=== PATIENT | female | born 1970 ===

== ENCOUNTER 2016-10-19 16:16 | Observation (INO) | payer MEDICAID, OTHER ==
[2016-10-19] MEDS ORDERED: Gadodiamide 287 MG/ML VIAL (15ML) IV ONE (18:22)
--- NOTE | 2016-10-19 18:29 | C.PDOC ---
History Of Present Illness Pt reports horizontal double vision for the pat two days. Pt is 2wks post had mildly elevated BP durning and headache. Reports post delivery [place] improved just occasional frontal discomfort. Denies any weakness, numbness, fever, chills, vomiting or prior episodes of diplopia Pt is breast feeding with formula supplements. Seem by OB MD today and refereed to the ED after OP bloods and urine. Time Seen by Provider: 10/19/16 16:40 Chief Complaint (Nursing): Eye Problem History Per: Patient, Family History/Exam Limitations: no limitations Onset/Duration Of Symptoms: Days Current Symptoms Are (Timing): Still Present Past Medical History Vital Signs: Last Vital Signs Temp 97.9 F 10/19/16 16:20 Pulse 78 10/19/16 16:20 Resp 18 10/19/16 16:20 BP 151/86 H 10/19/16 16:20 Pulse Ox 99 10/19/16 16:20 - Medical History PMH: Hypothyroidism Surgical History: Appendectomy Family History: States: Unknown Family Hx - Social History Hx Alcohol Use: No Hx Substance Use: No Review Of Systems Except As Marked, All Systems Reviewed And Found Negative. Physical Exam - Physical Exam Appears: Well, Non-toxic, No Acute Distress Skin: Normal Color, Warm, Dry Eye(s): bilateral: Normal Inspection, PERRL, Abnormal Pupil, left: EOMI (Slight dysconjugate lateral gaze) Neck: Normal Chest: Symmetrical Cardiovascular: Rhythm Regular, No Murmur Respiratory: Normal Breath Sounds Pulses: Left Carotid: Normal, Right Carotid: Normal Neurological/Psych: Oriented x3, Normal Speech, Normal Cognition, Normal Cranial Nerves (? 3rd nerve palsy), No Cerebellar Signs, Normal Motor, Normal Sensation Gait: Steady ED Course And Treatment O2 Sat by Pulse Oximetry: 99 Medical Decision Making Medical Decision Making: Pt had unremarkable bloods as an OP and no protein in the urine BP is borderline high Does not appear to be pre-eclampsia, more likely, MS or cranial nerve problem Plan MRI to r/o MS [place] or other lesion Plan discussed with pt and dr Flaherty Disposition Counseled Patient/Family Regarding: Diagnosis, Need For Followup - Disposition Disposition: HOME/ ROUTINE Disposition Time: 18:56 Condition: FAIR - Clinical Impression Clinical Impression: Diplopia Physician Patient Turnover Patient Signed Over To: Dagoberto Seymour Handoff Comments: Pending results of MRI, and discussion with dr Flaherty ([phone])
[2016-10-19] MEDS ORDERED: cefTRIAXone 2 GM in Sodium Chloride 0.9% 100 ML IVPB STA (19:41)
[2016-10-19 21:13] VITALS: RESP 20
[2016-10-19] MEDS ORDERED: cefTRIAXone IV 1 gm in Dextros 100 ML IVPB ONE (21:27)
[2016-10-19 21:31] LABS: FLUID TYPE SPINAL FLUID
--- NOTE | 2016-10-19 22:37 | CP.PCM.CON ---
History of Present Illness - History of Present Illness History of Present Illness: this is a 46 year old healthy female with no PMH and recent C- section with epidural block 14 days ago. She had neck pain and head ache for one week is not completely gone, but since tuesday evening she has had double vision when looking forward only, not when looking to the sides. Movement of the eyes to the sides shows complete movement of the eye ball to the right on both eyes, when looking to the left there is complete movement of the eye ball to the left with the right eye and almost complete, but not quite with the left eye. 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 no fever, wbc count wnl. LP was done with patient lying on the side with very low OP (3) and very slow output of CSF fluid, fluid was send to the lab. I highly doubt there is infections meningitis. Possibly there is oculomotor nerve palsy, some of it's fiber innervate muscles that enable pupillary constriction and accomodation. This normally occurs 4-14 days after LP with leak of CSF fluid (syndrome of intracranial hypotension) and recovers in weeks to months, possibly blood patch can be done to stop leak if still occurring. Please consult neurology. No need for critical care admission. Past Patient History - Past Social History Smoking Status: Never Smoked - ENDOCRINE/METABOLIC Hx Hypothyroidism: Yes - PSYCHIATRIC Hx Substance Use: No - SURGICAL HISTORY Hx Appendectomy: Yes Meds Allergies/Adverse Reactions: Allergies Allergy/AdvReac Type Severity Reaction Status Date / Time No Known Allergies Allergy Verified 10/19/16 16:22 Results - Vital Signs Recent Vital Signs: Last Vital Signs Temp 97.8 F 10/19/16 19:10 Pulse 72 10/19/16 21:38 Resp 20 10/19/16 21:38 BP 122/76 10/19/16 21:38 Pulse Ox 99 10/19/16 21:38 - Labs Labs: Laboratory Results - last 24 hr 10/19/16 10/19/16 21:29 21:29 Fluid Type Spinal fluid CSF Glucose 38 L CSF Total Protein 73.0 H
--- NOTE | 2016-10-20 08:07 | MRI ---
PROCEDURE: MRI BRAIN WITH AND WITHOUT CONTRAST HISTORY: post dobble vision r/o ms COMPARISON: None. TECHNIQUE: Multiplanar, multisequence MR images of the brain were obtained with and without intravenous contrast enhancement. FINDINGS: HEMORRHAGE: None DWI: No evidence of an acute or early subacute infarction. BRAIN PARENCHYMA: No mass,mass effect or edema. No atrophy or chronic microvascular ischemic changes. ENHANCEMENT: No abnormal intracranial enhancement. VENTRICLES: Unremarkable. No hydrocephalus. CRANIUM: Unremarkable. ORBITS: Grossly unremarkable. PARANASAL SINUSES/MASTOIDS: Clear VASCULAR SYSTEM: Skull base flow voids intact. OTHER FINDINGS: There is enlargement of the pituitary gland measuring 8 millimeters in craniocaudad dimension with questionable mass effect upon the cavernous sinuses bilaterally. Recommend correlation with dedicated MRI of the pituitary gland.. IMPRESSION: There is enlargement of the pituitary gland measuring 8 millimeters in craniocaudad dimension with questionable mass effect upon the cavernous sinuses bilaterally. Recommend correlation with dedicated MRI of the pituitary gland.
--- NOTE | 2016-10-20 08:24 | CP.PCM.HP ---
Present on Admission - Present on Admission Any Indicators Present on Admission: No Past Patient History - Past Medical History & Family History Past Medical History?: Yes - Past Social History Smoking Status: Never Smoked - CARDIAC Hx Cardiac Disorders: No - PULMONARY Hx Respiratory Disorders: No - NEUROLOGICAL Hx Neurological Disorder: No - HEENT Hx HEENT Problems: No - RENAL Hx Chronic Kidney Disease: No - ENDOCRINE/METABOLIC Hx Endocrine Disorders: Yes Hx Hypothyroidism: Yes - HEMATOLOGICAL/ONCOLOGICAL Hx Blood Disorders: No - INTEGUMENTARY Hx Dermatological Problems: No - MUSCULOSKELETAL/RHEUMATOLOGICAL Hx Falls: No - GASTROINTESTINAL Hx Gastrointestinal Disorders: No - GENITOURINARY/GYNECOLOGICAL Hx Genitourinary Disorders: No - PSYCHIATRIC Hx Substance Use: No - SURGICAL HISTORY Hx Surgeries: Yes Hx Appendectomy: Yes (2009) - ANESTHESIA Hx Anesthesia: Yes Hx Anesthesia Reactions: No Hx Malignant Hyperthermia: No Has any member of the family had a problem w/ anesthesia?: No Meds Allergies/Adverse Reactions: Allergies Allergy/AdvReac Type Severity Reaction Status Date / Time No Known Allergies Allergy Verified 10/19/16 16:22 Results - Vital Signs Recent Vital Signs: Last Vital Signs Temp 97.9 F 10/20/16 00:00 Pulse 78 10/20/16 00:00 Resp 20 10/20/16 00:00 BP 142/89 10/20/16 00:00 Pulse Ox 99 10/20/16 00:00 - Labs Labs: Laboratory Results - last 24 hr 10/19/16 10/19/16 21:29 21:29 Fluid Type Spinal fluid CSF Volume 1 CSF Appearance Clear/colorless CSF WBC 5.0 CSF RBC 171.0 H CSF Total Cell Counted TEST NOT PERFORMED CSF Monos/Macrophages TEST NOT PERFORMED CSF Comment CSF Glucose 38 L CSF Total Protein 73.0 H Assessment & Plan - Assessment and Plan (Free Text) Plan: neuro id ic reocephin iv vanco one dose of steroid pain med oph loreta same
[2016-10-20 08:31] VITALS: O2SAT 96
[2016-10-20] MEDS: Vancomycin 1 gm/NS 200 ml 1 GM/200 ML BAG IVPB SCH ×2 (09:37→22:49)
[2016-10-20] MEDS: Dextrose 5%/0.45% NS 1,000 ML IV SCH ×2 (09:37→19:13)
[2016-10-20] MEDS ORDERED: Enoxaparin 30 mg Syringe SC SCH (10:00)
[2016-10-20] MEDS ORDERED: Pantoprazole 40 mg EC Tab PO SCH (10:00)
--- NOTE | 2016-10-20 10:27 | CP.PCM.PN ---
Subjective - Date & Time of Evaluation Date of Evaluation: 10/20/16 Time of Evaluation: 13:00 - Subjective Subjective: clinically same Objective - Vital Signs/Intake and Output Vital Signs (last 24 hours): Temp Pulse Resp BP Pulse Ox 98.4 F 65 20 125/76 96 10/20/16 08:30 10/20/16 08:30 10/20/16 08:30 10/20/16 08:30 10/20/16 08:30 - Medications Medications: Current Medications Enoxaparin Sodium (Lovenox) 30 mg SC DAILY [facility] Last Admin: 10/20/16 09:36 Dose: 30 mg Ceftriaxone Sodium (Rocephin Iv 1 Gm Duplex) 50 mls @ 100 mls/hr IVPB Q12H [facility] Vancomycin/Sodium Chloride (Vancocin) 1 gm in 200 mls @ 133 mls/hr IVPB Q12H [facility] Stop: 10/25/16 10:01 Last Admin: 10/20/16 09:37 Dose: 133 mls/hr Dextrose/Sodium Chloride (Dextrose 5%/0.45% Ns 1000 Ml) 1,000 mls @ 100 mls/hr IV .Q10H [facility] Last Admin: 10/20/16 09:37 Dose: 100 mls/hr Pantoprazole Sodium (Protonix Ec Tab) 40 mg PO DAILY [facility] Last Admin: 10/20/16 09:37 Dose: 40 mg - Constitutional Appears: Well - Head Exam Head Exam: ATRAUMATIC, NORMAL INSPECTION, NORMOCEPHALIC - Eye Exam Eye Exam: EOMI, Normal appearance, PERRL Pupil Exam: NORMAL ACCOMODATION, PERRL - ENT Exam ENT Exam: Mucous Membranes Moist, Normal Exam - Neck Exam Neck Exam: Full ROM, Normal Inspection. absent: Lymphadenopathy - Respiratory Exam Respiratory Exam: Decreased Breath Sounds - Cardiovascular Exam Cardiovascular Exam: REGULAR RHYTHM, +S1, +S2 - GI/Abdominal Exam GI & Abdominal Exam: Soft, Diminished Bowel Sounds - Rectal Exam Rectal Exam: Deferred
[2016-10-20] MEDS: cefTRIAXone IV 1 gm in Dextros 50 ML IVPB SCH ×2 (12:10→22:11)
[2016-10-20 14:03] LABS: BASO % 0.2 % (0.0-2.0); EOS % 0.1 % (0.0-4.0); HEMATOCRIT 35.5 % (34.0-47.0); LYMPH # 2.5 K/uL (1.0-4.3); LYMPH % 16.9 % (20.0-40.0); MEAN CELL VOLUME 87.5 fL (81.0-99.0); MEAN CORPUSCULAR HGB CONC 34.2 g/dL (33.0-37.0); MEAN PLATELET VOLUME 7.9 fL (7.2-11.7); MONO # 0.6 K/uL (0.0-0.8); MONO % 3.8 % (0.0-10.0); RED CELL DISTRIBUTION WIDTH 12.7 % (11.5-14.5); WHITE BLOOD COUNT 14.9 K/uL (4.8-10.8)
[2016-10-20 14:14] LABS: CHLORIDE 104 mmol/L (98-107)
[2016-10-20 14:15] LABS: POTASSIUM 3.7 mmol/L (3.6-5.2); SODIUM 136 mmol/L (132-148)
[2016-10-20 14:17] LABS: BILIRUBIN,DIRECT 0.3 mg/dL (0.0-0.4); BILIRUBIN,TOTAL 0.5 mg/dL (0.2-1.3); CARBON DIOXIDE 20 mmol/L (22-30); GFR AFRICAN-AMERICAN > 60
[2016-10-20 14:18] LABS: ALB/GLOB RATIO 0.9 (1.0-2.1); ALKALINE PHOSPHATASE 88 U/L (38-126); ALT/SGPT 32 U/L (9-52); AST/SGOT 25 U/L (14-36); BLOOD UREA NITROGEN 9 mg/dL (7-17); CALCIUM 8.6 mg/dl (8.6-10.4); GLUCOSE,RANDOM 95 mg/dL (65-105); TOTAL PROTEIN 7.4 g/dL (6.3-8.3)
[2016-10-20 17:56] LABS: CRYPTOCOCCUS ANTIGEN SERUM NEGATIVE (NEGATIVE)
[2016-10-20 17:59] VITALS: BP 110/64; PULSE 72; TEMP 98.1
[2016-10-20 17:59] LABS: H INFLUENZAE B NEGATIVE (NEGATIVE); N MENINGITIS ACY/W135 NEGATIVE (NEGATIVE); N MENINGITIS B/ECOLI K1 NEGATIVE (NEGATIVE)
[2016-10-20 18:05] LABS: PROCALCITONIN SERUM < 0.50 NG/ML (0.19-0.49)
[2016-10-20 18:18] LABS: H INFLUENZAE B NEGATIVE (NEGATIVE); N MENINGITIS ACY/W135 NEGATIVE (NEGATIVE); N MENINGITIS B/ECOLI K1 NEGATIVE (NEGATIVE)
--- NOTE | 2016-10-20 21:05 | CP.PCM.CON ---
History of Present Illness - History of Present Illness History of Present Illness: Infectious Disease Consultation: 46-year-old female with no significant past medical history EXCEPT FOR HYPOTHYROIDISM AND RECENT with epidural block 15 days ago. Patient states that it started with neck pains and headache for one week prior to the admission. 4 days ago patient started having double vision/ And diplopia. Patient denies any fever or chills. MRI of the brain as reported showed diffuse meningeal enhancement ( OFFICIAL REPORT PENDING) LP was done in the ER and reported with very low opening pressure of 3 and slow output of CSF fluid. CSF findings reported as 5 WBCs with 171 RBCs, glucose of 38 And proteins of 73.SERUM SUGAR NOT KNOWN. BUT PATIENT STATES SHE HAD NOT EATEN SINCE MORNING. Patient was started on IV Rocephin 2 g and IV vancomycin 1 g stat dose after appropriate cultures along with one dose of Solu-Medrol 125 mg with antibiotics as discussed with ER physician Dr. WILSON. INFECTIOUS DISEASE CONSULTATION REQUESTED BY PMD TO RULE OUT MENINGITIS. PRESENTLY PATIENT FEELS MUCH BETTER. STATES THE HEADACHES ARE MUCH IMPROVED AND SHE DENIES ANY NAUSEA OR VOMITING.SHE STILL CONTINUES TO HAVE DOUBLE VISION. MRI OF THE BRAIN WITH CONTRAST 10/19/16 REPORT REVIEWED. INCREASED SIZE OF PITUITARY GLAND TO 8 MM WITH QUESTIONABLE MASS EFFECT UPON CAVERNOUS SINUSES BILATERALLY. PATIENT DENIES ANY BACK PAIN, LEG PAINS, COUGH, SHORTNESS OF BREATH, CHEST PAINS ,URINARY INCONTINENCE. PATIENT DOES GIVE HISTORY OF ELEVATED BLOOD PRESSURE DURING PREGNANCYAND HEADACHES. PATIENT DENIES ANY SICK CONTACTS LATELY AND THE BABY IS HEALTHY. ALLERGIES; NKA PMH: Hypothyroidism Surgical History: Appendectomy Family History: States: Unknown Family Hx - Social History Hx Alcohol Use: No Hx Substance Use: No Review of Systems - Constitutional Constitutional: absent: Chills, Fever, Night Sweats - EENT Eyes: Blurred Vision, Diplopia. absent: Discharge Nose/Mouth/Throat: absent: Sore Throat - Cardiovascular Cardiovascular: absent: Chest Pain, Dyspnea - Respiratory Respiratory: absent: Hemoptysis - Gastrointestinal Gastrointestinal: absent: Abdominal Pain - Genitourinary Genitourinary: absent: Dysuria, Urinary Incontinence, Urinary Hesitance - Musculoskeletal Musculoskeletal: Neck Pain. absent: Arthralgias, Back Pain - Neurological Neurological: Headaches, Other Visual Disturbances - Hematologic/Lymphatic Hematologic: As Per HPI. absent: Easy Bleeding, Lymphadenopathy Past Patient History - Past Medical History & Family History Past Medical History?: Yes - Past Social History Smoking Status: Never Smoked - CARDIAC Hx Cardiac Disorders: No - PULMONARY Hx Respiratory Disorders: No - NEUROLOGICAL Hx Neurological Disorder: No - HEENT Hx HEENT Problems: No - RENAL Hx Chronic Kidney Disease: No - ENDOCRINE/METABOLIC Hx Endocrine Disorders: Yes Hx Hypothyroidism: Yes - HEMATOLOGICAL/ONCOLOGICAL Hx Blood Disorders: No - INTEGUMENTARY Hx Dermatological Problems: No - MUSCULOSKELETAL/RHEUMATOLOGICAL Hx Falls: No - GASTROINTESTINAL Hx Gastrointestinal Disorders: No - GENITOURINARY/GYNECOLOGICAL Hx Genitourinary Disorders: No - PSYCHIATRIC Hx Substance Use: No - SURGICAL HISTORY Hx Surgeries: Yes Hx Appendectomy: Yes (2009) - ANESTHESIA Hx Anesthesia: Yes Hx Anesthesia Reactions: No Hx Malignant Hyperthermia: No Has any member of the family had a problem w/ anesthesia?: No Meds Allergies/Adverse Reactions: Allergies Allergy/AdvReac Type Severity Reaction Status Date / Time No Known Allergies Allergy Verified 10/19/16 16:22 - Medications Medications: Current Medications Enoxaparin Sodium (Lovenox) 30 mg SC DAILY [facility] Last Admin: 10/20/16 09:36 Dose: 30 mg Ceftriaxone Sodium (Rocephin Iv 1 Gm Duplex) 50 mls @ 100 mls/hr IVPB Q12H [facility] Last Admin: 10/20/16 12:10 Dose: 100 mls/hr Vancomycin/Sodium Chloride (Vancocin) 1 gm in 200 mls @ 133 mls/hr IVPB Q12H [facility] Stop: 10/25/16 10:01 Last Admin: 10/20/16 09:37 Dose: 133 mls/hr Dextrose/Sodium Chloride (Dextrose 5%/0.45% Ns 1000 Ml) 1,000 mls @ 100 mls/hr IV .Q10H [facility] Last Admin: 10/20/16 19:13 Dose: Not Given Pantoprazole Sodium (Protonix Ec Tab) 40 mg PO DAILY [facility] Last Admin: 10/20/16 09:37 Dose: 40 mg Physical Exam - Constitutional Appears: No Acute Distress - Head Exam Head Exam: NORMAL INSPECTION - Eye Exam Eye Exam: PERRL Pupil Exam: NORMAL ACCOMODATION Additional comments: ? ABDUCEN N PALSY- PATIENT HAS HORIZONTAL GAZE PALSY WITH INABILITY OF LEFT EYE TO MOVE COMPLETELY LOOKING LATERALLY. - ENT Exam ENT Exam: Normal Oropharynx - Neck Exam Neck exam: Positive for: Meningismus. Negative for: Lymphadenopathy - Respiratory Exam Respiratory Exam: Clear to Auscultation Bilateral - Cardiovascular Exam Cardiovascular Exam: REGULAR RHYTHM, +S1, +S2 - GI/Abdominal Exam GI & Abdominal Exam: Normal Bowel Sounds, Soft. absent: Organomegaly - Extremities Exam Extremities exam: Positive for: pedal pulses present. Negative for: calf tenderness, pedal edema - Neurological Exam Neurological exam: Alert, Oriented x3, Reflexes Normal - Psychiatric Exam Psychiatric exam: Normal Mood - Skin Skin Exam: Normal Color Results - Vital Signs Recent Vital Signs: Last Vital Signs Temp 98.1 F 10/20/16 15:00 Pulse 72 10/20/16 15:00 Resp 20 10/20/16 15:00 BP 110/64 10/20/16 15:00 Pulse Ox 96 10/20/16 15:00 - Labs Result Diagrams: 10/21/16 04:00 10/21/16 04:00 Labs: Laboratory Results - last 24 hr 10/19/16 10/19/16 10/20/16 21:29 21:29 13:52 WBC 14.9 H RBC 4.05 Hgb 12.2 Hct 35.5 MCV 87.5 MCH 30.0 MCHC 34.2 RDW 12.7 Plt Count 357 MPV 7.9 Neut % (Auto) 79.0 H Lymph % (Auto) 16.9 L [place] % (Auto) 3.8 Eos % (Auto) 0.1 Baso % (Auto) 0.2 Neut # 11.8 H Lymph # 2.5 [place] # 0.6 Eos # 0.0 Baso # 0.0 ESR 48 H Sodium Potassium Chloride Carbon Dioxide Anion Gap BUN Creatinine Est GFR ( Amer) Est GFR (Non-Af Amer) Random Glucose Calcium Total Bilirubin Direct Bilirubin AST ALT Alkaline Phosphatase C-React Prot High Sens Total Protein Albumin Globulin Albumin/Globulin Ratio Procalcitonin Fluid Type Spinal fluid CSF Volume 1 CSF Appearance Clear/colorless CSF WBC 5.0 CSF RBC 171.0 H CSF Total Cell Counted TEST NOT PERFORMED CSF Monos/Macrophages TEST NOT PERFORMED CSF Comment CSF Glucose 38 L CSF Total Protein 73.0 H Cryptococcus Ag H.influenzae Type B Ag N.meningitidis ACY/W135 N.meningi B/E.coli K1 Ag Group B Strep Antigen S. pneumoniae Antigen 10/20/16 10/20/16 10/20/16 13:52 13:52 13:52 WBC RBC Hgb Hct MCV MCH MCHC RDW Plt Count MPV Neut % (Auto) Lymph % (Auto) [place] % (Auto) Eos % (Auto) Baso % (Auto) Neut # Lymph # [place] # Eos # Baso # ESR Sodium 136 Potassium 3.7 Chloride 104 Carbon Dioxide 20 L Anion Gap 16 BUN 9 Creatinine 0.5 L Est GFR ( Amer) > 60 Est GFR (Non-Af Amer) > 60 Random Glucose 95 Calcium 8.6 Total Bilirubin 0.5 Direct Bilirubin 0.3 AST 25 ALT 32 Alkaline Phosphatase 88 C-React Prot High Sens 4.88 H Total Protein 7.4 Albumin 3.5 D Globulin 4.0 H Albumin/Globulin Ratio 0.9 L Procalcitonin < 0.50 H Fluid Type CSF Volume CSF Appearance CSF WBC CSF RBC CSF Total Cell Counted CSF Monos/Macrophages CSF Comment CSF Glucose CSF Total Protein Cryptococcus Ag Negative H.influenzae Type B Ag Negative N.meningitidis ACY/W135 Negative N.meningi B/E.coli K1 Ag Negative Group B Strep Antigen Negative S. pneumoniae Antigen Negative 10/20/16 13:52 WBC RBC Hgb Hct MCV MCH MCHC RDW Plt Count MPV Neut % (Auto) Lymph % (Auto) [place] % (Auto) Eos % (Auto) Baso % (Auto) Neut # Lymph # [place] # Eos # Baso # ESR Sodium Potassium Chloride Carbon Dioxide Anion Gap BUN Creatinine Est GFR ( Amer) Est GFR (Non-Af Amer) Random Glucose Calcium Total Bilirubin Direct Bilirubin AST ALT Alkaline Phosphatase C-React Prot High Sens Total Protein Albumin Globulin Albumin/Globulin Ratio Procalcitonin Fluid Type CSF Volume CSF Appearance CSF WBC CSF RBC CSF Total Cell Counted CSF Monos/Macrophages CSF Comment CSF Glucose CSF Total Protein Cryptococcus Ag H.influenzae Type B Ag Negative N.meningitidis ACY/W135 Negative N.meningi B/E.coli K1 Ag Negative Group B Strep Antigen Negative S. pneumoniae Antigen Negative Assessment & Plan (1) Headache Assessment and Plan: HEADACHES IMPROVED. NO N/V. S/P LP. FINDINGS NOTED. ? ASEPTIC MENINGITIS /VS TRAUMATIC (+V RBCS)-CULTURE NEGATIVE FOR 24 HOURS. cONTINUE iv rOCEPHIN 1 G EVERY 12 HOURLY.10/19/16 cONTINUE iv VANCOMYCIN 1 G EVERY 12 HOURLY 5/16/17 F/U CULTURES FOR NEXT 48-72 HOURS. NEUROLOGY CONSULT IN PROGRESS. MRI SHOWS ENLARGED PITUITARY WITH MASS EFFECT.PT HAS ISOLATED 6TH N PALSY WILL DISCUSS WITH NEUROLOGY. Status: Acute (2) Diplopia Status: Acute (3) Hypothyroidism Assessment and Plan: TSH and thyroid function studies. Status: Acute
--- NOTE | 2016-10-20 21:42 | CON ---
DATE: 10/20/2016 ATTENDING PHYSICIAN: Ceasar Alcocer MD The patient is in room 555. REASON FOR CONSULTATION: Double vision. CHIEF COMPLAINT: The patient came to [facility] with a history of double vision for 4 days. Th e patient has of 2 weeks, history of headache. The patient did have spinal tap to rule ou t meningitis with preceding MRI of the brain was done to rule out space occupying lesion. HISTORY OF PRESENT ILLNESS: The patient is a 46-year-old right-handed female who had delivere d a baby 2 weeks ago with use of epidural injection. Following delivery, she did have 6 days worseni ng headache which is also not that bad which was around 6/10, not associating with nausea or vomiting . The symptoms have slowing disappeared. Following this, since last Tuesday (for 4 days), she starte d to have horizontal double vision. The symptoms disappeared with closing one eye. No history of fa cial weakness. No history of focal weakness. No history of neck pain. No history of change in ment al status, no history of involuntary movements, no history of recent fever. No similar episodes happened in the past. PAST MEDICAL HISTORY: Unremarkable except hypothyroidism. PERSONAL HISTORY: Denies smoking or alcohol use. NEUROLOGIC EXAMINATION: The patient is awake, alert, oriented to person, place, and time. Speech is clear. Naming, repetition, fluency, comprehension all within normal. No hallucination. No suicida l ideation. The mentation is normal. She follows 2-3 step complex commands. CRANIAL NERVES: Visual field intact. Left eye is esotropic. Pupils reactive to light. No or afferent pupillary defect. The patient has weakness of abduction on her left side, suggestive of le ft sixth nerve palsy. No facial sensory deficit. No facial asymmetry. Hearing is normal. Tongue i s midline. Good gag. MOTOR: On outstretched hand with eyes closed, no drift noted. Power is symmetric on either side. DEEP TENDON REFLEXES: Biceps, brachialis, triceps 2+. Plantars are downgoing. GAIT: Normal. Tandem walking is good. CONCLUSION: Upon reviewing her history and neurological examination, the patient is presenting with isolated left sixth nerve palsy without any other long tract sign suggestive of possible intracranial hypertension affecting the left sixth nerve, probably complicating epidural procedures introduced in tracranial hypertension. However, the current examination does not show any space occupying lesion o r neuromuscular junction disease or Guillain-[place] syndrome. BLOOD WORKUP: WBC 14.9, hemoglobin 12.2, hematocrit 35.5, platelets . ESR 48. Sodium 136, pot assium 3.7, chloride 104, bicarbonate 20, BUN 9, creatinine 0.5, GFR more than 60. Calcium 8.6. Leydi er functions are normal. CRP 4.88. Serology cryptococcal antigen negative. All meningitis workups are negative. Strep pneumoniae is pending. No growth noted in CSF culture. CSF shows WBC 5.0 , RBCs traumatic tap 171 RBCs. Glucose 38 and protein is 73. WORKUP: MRI of the brain being reviewed by me suggestive of meningeal enhancement without any intrap arenchymal lesion, particularly the brainstem. As per the report pituitary gland showed 8 mm in cran iocaudal dimension. RECOMMENDATIONS: Continue IV hydration. The patient neurologically stable at present. Continue to observe for next 24-hour period. If all the workup is negative, the patient can be discharged and co uld have a followup visit as outpatient. Considering the pituitary pathology, the patient should hav e designated pituitary MRI, which can be done as outpatient as well. The patient will be followed wh ile she is in the hospital. Goldy Burnett MD cc: [id number] TT: 10/20/2016 21:42:23 Confirmation # [id number] Dictation # [id number] [email or web address]
[2016-10-21 21:56] LABS: ALKALINE PHOSPHATASE 78 U/L (38-126); ALT/SGPT 25 U/L (9-52); AST/SGOT 24 U/L (14-36); BILIRUBIN,TOTAL 0.4 mg/dL (0.2-1.3); BLOOD UREA NITROGEN 8 mg/dL (7-17); CALCIUM 8.1 mg/dl (8.6-10.4); CARBON DIOXIDE 22 mmol/L (22-30); CHLORIDE 105 mmol/L (98-107); GFR AFRICAN-AMERICAN > 60; GLUCOSE,RANDOM 79 mg/dL (65-105); POTASSIUM 3.5 mmol/L (3.6-5.2); SODIUM 138 mmol/L (132-148); TOTAL PROTEIN 6.7 g/dL (6.3-8.3)
[2016-10-21 22:55] LABS: BASO # 0.2 K/uL (0.0-0.2); BASO % 1.8 % (0.0-2.0); EOS # 0.2 K/uL (0.0-0.7); EOS % 2.4 % (0.0-4.0); HEMATOCRIT 35.8 % (34.0-47.0); LYMPH # 2.2 K/uL (1.0-4.3); LYMPH % 24.5 % (20.0-40.0); MEAN CELL VOLUME 88.8 fL (81.0-99.0); MEAN CORPUSCULAR HEMOGLOBIN 30.1 pg (27.0-31.0); MEAN CORPUSCULAR HGB CONC 33.9 g/dL (33.0-37.0); MONO # 0.4 K/uL (0.0-0.8); MONO % 4.5 % (0.0-10.0); NRBC % 0.1 % (0.0-2.0); RED CELL DISTRIBUTION WIDTH 12.5 % (11.5-14.5); WHITE BLOOD COUNT 9.2 K/uL (4.8-10.8)
[2016-10-22 11:47] LABS: THYROID STIMULATING HORMONE 0.28 mIU/L (0.46-4.68)
== END 2016-10-21 18:00 | disposition home or self-care (01) ==
LOC: C.ER 16:16 → C.9E 21:20 → C.5T 23:16
PROVIDERS: ADMIT Internal Medicine Nephrology; ATTEND Internal Medicine Nephrology
DX: H49.22 Sixth [abducent] nerve palsy, left eye (principal); H53.2 Diplopia; E03.9 Hypothyroidism, unspecified
CPT/HCPCS: 36415; 62270; 70552; 80048; 80053; 80076; 82945; 84145; 84157; 84443; 85025; 85651; 86038; 86060; 86140; 86403; 87040; 87070; 87327; 89050; 96365; 96375; 99285; A9579; G0378; J0696; J1650; J2930; J3370; J7042; J7050